=== PATIENT | female | born 1965 | race Caucasian/White ===

== ENCOUNTER 2018-07-30 15:14 | Day surgery (SDC) | END 2018-07-30 21:12 | disposition home or self-care (01) ==

== ENCOUNTER 2019-03-25 13:51 | Emergency (ER) | payer OTHER ==
[~2019-03-25] VITALS: Ht 167.6 cm; Wt 68.6 kg
[2019-03-25 13:57] VITALS: Ht 167.6 cm; Wt 68.6 kg
--- NOTE | 2019-03-25 14:18 | ERD ---
ER Documentation Chief Complaint Chief Complaint abdominal pain, vomiting, diarrhea, and nausea x 2 months, dx gallstones HPI The patient is a 53-year-old female, presenting to the ER because of chronic right upper quad abdominal pain for more than 2 months, chronic diarrhea for 1 month, vomiting for 2 weeks. She has history of gallstones, waiting for surgery. She was seen at [facility] ER 2 days ago and treated with pain medication. She denies hematemesis/hematochezia, neck pain, chest pain, dyspnea. The abdominal pain is localized at the right upper quadrant, she denies dysuria, hematuria. Medical history: Cholelithiasis, asthma, anemia Past surgical history: Uterine biopsy ROS All systems reviewed and are negative except as per history of present illness. Medications Home Meds Active Scripts Ondansetron (Ondansetron Odt) 4 Mg Tab.rapdis, 4 MG PO Q6H PRN for NAUSEA AND/OR VOMITING, #10 TAB Prov:LIZZETH SAMANIEGO MD 03/25/19 Loperamide Hcl* (Imodium*) 2 Mg Capsule, 2 MG PO QID PRN for DIARRHEA, #14 CAP MAX 16 mg/day Prov:LIZZETH SAMANIEGO MD 03/25/19 Hydrocodone/Acetaminophen (Powderly 10-325 Tablet) 1 Each Tablet, 1 TAB PO Q6H PRN for PAIN, #7 TAB Prov:LIZZETH SAMANIEGO MD 03/25/19 Reported Medications Albuterol Sulfate* (Proair HFA*) 8.5 Gm Hfa.aer.ad, 2 PUFF INH Q4H PRN for W HEEZING AND SOB, #1 INHALER 03/25/19 Loperamide Hcl* (Loperamide Hcl*) 2 Mg Cap, 2 MG PO Q8 PRN for DIARRHEA, CAP 03/25/19 Beclomethasone Dipropionate (Qvar Redihaler (80 MCG)) 10.6 Gm Hfa.aeroba, 10.6 GM IH BID, INH 03/25/19 Ferrous Sulfate* (Ferrous Sulfate*) 325 Mg Tabec, 325 MG PO TID, TAB 03/25/19 Diclofenac Sodium* (Diclofenac Sodium*) 75 Mg Tablet.dr, 75 MG PO BID, #60 TAB 03/25/19 Multivitamin* (Daily Value*) 1 Each Tablet, 1 TAB PO DAILY, TAB 03/25/19 Ascorbic Acid* (Vitamin C*) 500 Mg Capsule.sa, 500 MG PO BID, CAP 03/25/19 Hydrocodone/Acetaminophen (Powderly 5-325 Tablet) 1 Each Tablet, 1-2 EACH PO Q6 PRN for PAIN, TAB 03/25/19 Albuterol Sulfate* (Proair HFA*) 8.5 Gm Hfa.aer.ad, 2 PUFF INH Q4H PRN for WHEEZING AND SOB, #1 INHALER 03/25/19 Quetiapine Fumarate* (Seroquel*) 100 Mg Tablet, 100 MG PO HS, #30 TAB 03/25/19 Omeprazole* (Omeprazole*) 40 Mg Capsule.dr, 40 MG PO DAILY, #30 CAP 03/25/19 Medroxyprogesterone Acetate* (Medroxyprogesterone Acetate*) 10 Mg Tablet, 10 MG PO DAILY, TAB 03/25/19 Lorazepam* (Lorazepam*) 1 Mg Tablet, 1 MG PO Q6 PRN for ANXIETY, #60 TAB 03/25/19 Loratadine* (Loratadine*) 10 Mg Tablet, 10 MG PO DAILY, #30 TAB 03/25/19 Ibuprofen* (Motrin*) 400 Mg Tab, 400 MG PO Q6H PRN for PAIN, TAB 03/25/19 Allergies Allergies: Coded Allergies: No Known Allergy (Unverified , 03/25/19) PMhx/Soc History of Surgery: No Anesthesia Reaction: No Hx Neurological Disorder: No Hx Respiratory Disorders: No Hx Cardiac Disorders: No Hx Psychiatric Problems: No Hx Miscellaneous Medical Probl: No Hx Alcohol Use: No Hx Substance Use: No Hx Tobacco Use: No Physical Exam Vitals Vital Signs Date Temp Pulse Resp B/P (MAP) Pulse Ox O2 O2 Flow FiO2 Time Delivery Rate 03/25/19 71 20 92/58 (69) 99 Room Air 15:23 03/25/19 98.8 106 18 124/60 96 13:57 (81) Physical Exam Const: No acute distress. Head: Atraumatic. Eyes: Normal Conjunctiva. ENT: Normal External Ears, Nose and Mouth. Neck: Full range of motion. No meningismus. Resp: Clear to auscultation bilaterally. Cardio: Regular rate and rhythm. Abd: Soft, non distended, normal bowel sounds, mild right upper quadrant discomfort, no rigidity/rebound/CVA tenderness Skin: No petechiae or rashes. Back: No midline or flank tenderness. Ext: No cyanosis, or edema. Neur: Awake and alert. No focal deficit Psych: Normal Mood and Affect. Result Diagram: 03/25/19 1452 03/25/19 1452 Results 24 hrs Laboratory Tests Test 03/25/19 14:52 03/25/19 15:04 03/25/19 15:06 White Blood Count 6.6 10^3/ul Red Blood Count 4.54 10^6/ul Hemoglobin 7.7 g/dl Hematocrit 30.2 % Mean Corpuscular Volume 66.5 fl Mean Corpuscular Hemoglobin 17.0 pg Mean Corpuscular 25.5 g/dl Hemoglobin Concent Red Cell Distribution Width 21.9 % Platelet Count 669 10^3/UL Mean Platelet Volume 9.7 fl Immature Granulocytes % 0.300 % Neutrophils % % Lymphocytes % % Monocytes % % Eosinophils % % Basophils % % Nucleated Red Blood Cells % 0.0 /100WBC Immature Granulocytes # 0.020 10^3/ul Neutrophils # 10^3/ul Lymphocytes # 10^3/ul Monocytes # 10^3/ul Eosinophils # 10^3/ul Basophils # 10^3/ul Nucleated Red Blood Cells # 10^3/ul Sodium Level 141 mmol/L Potassium Level 4.1 mmol/L Chloride Level 113 mmol/L Carbon Dioxide Level 14 mmol/L Anion Gap 14 Blood Urea Nitrogen 5 mg/dl Creatinine 0.71 mg/dl Est Glomerular Filtrat Rate mL/min > 60 mL/min Glucose Level 63 mg/dl Calcium Level 9.2 mg/dl Total Bilirubin 0.2 mg/dl Direct Bilirubin 0.00 mg/dl Indirect Bilirubin 0.2 mg/dl Aspartate Amino Transf (AST/SGOT) 9 IU/L Alanine 8 IU/L Aminotransferase (ALT/SGPT) Alkaline Phosphatase 91 IU/L Total Protein 6.4 g/dl Albumin 2.7 g/dl Globulin 3.70 g/dl Albumin/Globulin Ratio 0.72 Lipase 26 U/L Bedside Urine pH (LAB) 5.5 Bedside Urine Protein (LAB) 1+ Bedside Urine Glucose (UA) Negative Bedside Urine Ketones (LAB) 4+ Bedside Urine Blood Negative Bedside Urine Nitrite (LAB) Negative Bedside Urine Leukocyte Esterase Trace (L POC Beta HCG, Qualitative NEGATIVE Current Medications Medications Dose Sig/Hortencia Start Time Status Last (Trade) Ordered Route PRN Stop Time Admin Dose Reason Admin Sodium 1,000 ml @ Q1H STAT 03/25/19 DC 03/25/19 Chloride 1,000 mls/hr IV 14:27 15:02 03/25/19 15:26 Ondansetron 4 mg ONCE STAT 03/25/19 DC 03/25/19 HCl (Zofran IV 14:27 15:02 Inj) 03/25/19 14:29 Loperamide 4 mg ONCE ONCE 03/25/19 DC 03/25/19 HCl PO 14:30 15:02 (Imodium Cap) 03/25/19 14:31 Sodium 1,000 ml @ Q1H ONCE 03/25/19 03/25/19 Chloride 1,000 mls/hr IV 16:30 16:28 03/25/19 17:29 Procedures/MDM MEDICAL MAKING DECISION: The patient is a 53-year-old female, presenting with acute pericolic, acute dehydration. She was treated with 1 L normal saline x2 for acute dehydration, Zofran IV for nausea, Imodium for diarrhea with good response, is stable for outpatient follow-up the differential diagnoses considered include but are not limited to cholelithiasis, cholecystitis, choledocholithiasis, cholangitis, pancreatitis, hepatitis, gastritis, peptic ulcer disease, gastric ulcer, appendicitis, cystitis, diverticulitis, partial small bowel obstruction. Consultation: I discussed the patient's surgeon Dr Parker, who was made aware of the lab, the treatment and he recommended discharging patient Departure Diagnosis: Primary Impression: Biliary colic Additional Impressions: Dehydration Anemia Condition: Good Comments She was discharged with Imodium, Zofran, 7 tablets of Powderly 5 mg I discussed the findings with the patient. I advised the patient to follow-up with the primary physician and Dr Parker in about 1-2 days, sooner if needed and return if any concern. Disclaimer: Inadvertent spelling and grammatical errors are likely due to EHR/dictation software use and do not reflect on the overall quality of patient care. Also, please note that the electronic time recorded on this note does not necessarily reflect the actual time of the patient encounter. LIZZETH SAMANIEGO MD Mar 25, 2019 14:18
[2019-03-25] MEDS ORDERED: ONDANSETRON 4 MG INJ IV STA (14:27)
[2019-03-25] MEDS ORDERED: SOD CHLORIDE 0.9% 1,000 ML IV STA (14:27)
[2019-03-25] MEDS ORDERED: LOPERAMIDE 2 MG CAP PO ONE (14:30)
[2019-03-25] MEDS ORDERED: IBUP-1561 PO (15:32)
[2019-03-25] MEDS ORDERED: LORA1TAB PO (15:33)
[2019-03-25] MEDS ORDERED: LORA10TA3 PO (15:33)
[2019-03-25] MEDS ORDERED: MEDR10TA9 PO (15:33)
[2019-03-25] MEDS ORDERED: OMEP40CA6 PO (15:34)
[2019-03-25] MEDS ORDERED: QUET100T PO (15:34)
[2019-03-25] MEDS ORDERED: ALBU8.5H8 INH ×2 (15:35→15:43)
[2019-03-25] MEDS ORDERED: ASCO500C7 PO (15:37)
[2019-03-25] MEDS ORDERED: MULT-542 PO (15:37)
[2019-03-25] MEDS ORDERED: HYDR-4011 PO (15:37)
[2019-03-25] MEDS ORDERED: DICL75TA2 PO (15:38)
[2019-03-25] MEDS ORDERED: FER325 PO (15:38)
[2019-03-25] MEDS ORDERED: BECL10.62 IH (15:39)
[2019-03-25] MEDS ORDERED: LOPE-123 PO (15:42)
[2019-03-25] MEDS ORDERED: LOPE2CAP PO (16:16)
[2019-03-25] MEDS ORDERED: HYDR-3980 PO (16:16)
[2019-03-25] MEDS ORDERED: ONDA4TAB14 PO (16:17)
[2019-03-25] MEDS ORDERED: SOD CHLORIDE 0.9% 1,000 ML IV ONE (16:30)
[2019-03-25 18:30] VITALS: BP 105/53; PULSE 73; RESP 20
== END 2019-03-25 18:33 | disposition home or self-care (01) ==
LOC: E/R 13:51
DX: K80.20 Calculus of gallbladder without cholecystitis without obstruction (principal); E86.0 Dehydration; D64.9 Anemia, unspecified; J45.909 Unspecified asthma, uncomplicated
CPT/HCPCS: 36415; 80053; 81003; 81025; 83690; 85025; 96374; J2405; J7030; Z7502; Z7610